=== PATIENT | female | born 1940 | race Caucasian/White ===

== ENCOUNTER 2020-03-24 16:33 | Inpatient (IN) | payer OTHER ==
[~2020-03-24] VITALS: Ht 152.4 cm; Wt 52.5 kg
[2020-03-24] MEDS ORDERED: FUROSEMIDE 40 MG/4 ML VIAL IV ONE (18:30)
[2020-03-24 18:47] LABS: Basophils # (auto) 0.1 10 ^3/uL (0-0.2); Basophils % (auto) 0.6 % (0.0-2.0); Eosinophils # (auto) 0.1 10 ^3/uL (0-0.8); Eosinophils % (auto) 0.4 % (0.0-7.0); Hematocrit 47.8 % (36.0-46.0); Hemoglobin 15.8 g/dL (12.2-16.2); Lymphocytes % (auto) 8.3 % (10.0-50.0); Mean Corpuscular Hemoglobin 29.6 pg (28.0-32.0); Mean Corpuscular Volume 89.6 fL (80.0-100.0); Monocytes # (auto) 0.6 10 ^3/uL (0-1.3); Monocytes % (auto) 5.2 % (0.0-12.0); Neutrophils # (auto) 10.2 10 ^3/uL (1.6-8.6); Neutrophils % (auto) 85.5 % (37.0-80.0); Nucleated Red Blood Cells % 0.1 %; Platelet Count (auto) 136 10^3/uL (140-450); Red Blood Cells 5.34 10^6/uL (4.0-5.20); Red Cell Distribution Width 15.1 % (11.8-14.3)
[2020-03-24 19:05] LABS: Albumin 4.1 g/dL (3.4-5.0); Anion Gap 6 (5-15); BUN/Creatinine Ratio 19.5; Blood Urea Nitrogen 16 mg/dL (7-18); Calcium 8.8 mg/dL (8.5-10.1); Carbon Dioxide 24 mmol/L (21-32); Chloride 111 mmol/L (98-107); GFR African American 86 mL/min; GFR Non-African American 71 mL/min; Glucose 131 mg/dL (74-106); Magnesium 2.3 mg/dL (1.6-2.6); Potassium 3.9 mmol/L (3.5-5.1); Sodium 141 mmol/L (136-145)
[2020-03-24 19:11] LABS: Alanine Aminotransferase 40 U/L (13-56); Alkaline Phosphatase 43 U/L (45-117); Aspartate Aminotransferase 23 U/L (15-37); Bilirubin, Total 0.4 mg/dL (0.2-1.0); Total Protein 7.3 g/dL (6.4-8.2)
[2020-03-24 20:20] LABS: Urine Bacteria NONE SEEN /hpf (None Seen); Urine Blood Negative /uL (Negative); Urine Mucus FEW (None Seen); Urine Specific Gravity 1.012 (1.001-1.035); Urine WBC 5 /hpf (0 - 5)
[2020-03-24] MEDS ORDERED: ONDANSETRON HCL 4 MG/2 ML VIAL ONE (20:20)
[2020-03-24] MEDS ORDERED: ONDANSETRON HCL 4 MG/2 ML VIAL IV ONE (20:30)
[2020-03-24] MEDS ORDERED: cefTRIAXone 1GM/50ML D5W 50 ML IV ONE (21:30)
[2020-03-24] MEDS ORDERED: NITROGLYCERIN 0.4 MG SL TAB SL PRN (21:30)
[2020-03-24] MEDS ORDERED: TEMAZEPAM 15 MG CAP PO PRN (21:30)
[2020-03-24] MEDS ORDERED: cloNIDine HCL 0.1 MG TAB PO PRN (21:30)
[2020-03-24] MEDS ORDERED: ACETAMINOPHEN 325 MG TAB PO PRN (21:30)
[2020-03-24] MEDS ORDERED: MORPHINE SULF INJ 2 MG/ML SYRINGE 1ML IV PRN (21:30)
[2020-03-24] MEDS: ONDANSETRON HCL 4 MG/2 ML VIAL IV PRN (22:37)
[2020-03-24] MEDS: FAMOTIDINE 20 MG TAB PO SCH (23:00)
[2020-03-24] MEDS: ATORVASTATIN 20 MG TAB PO SCH (23:00)
[2020-03-25] MEDS: ONDANSETRON HCL 4 MG/2 ML VIAL IV PRN (05:06)
[2020-03-25 05:58] LABS: Basophils # (auto) 0 10 ^3/uL (0-0.2); Basophils % (auto) 0.3 % (0.0-2.0); Eosinophils # (auto) 0 10 ^3/uL (0-0.8); Hematocrit 47.5 % (36.0-46.0); Hemoglobin 16.2 g/dL (12.2-16.2); Lymphocytes # (auto) 1.4 10 ^3/uL (0.4-5.4); Lymphocytes % (auto) 12.8 % (10.0-50.0); Mean Corpuscular Hemoglobin 29.6 pg (28.0-32.0); Mean Corpuscular Volume 86.9 fL (80.0-100.0); Monocytes # (auto) 0.4 10 ^3/uL (0-1.3); Monocytes % (auto) 3.3 % (0.0-12.0); Neutrophils # (auto) 9.4 10 ^3/uL (1.6-8.6); Neutrophils % (auto) 83.6 % (37.0-80.0); Nucleated Red Blood Cells % 0.1 %; Platelet Count (auto) 219 10^3/uL (140-450); Red Blood Cells 5.47 10^6/uL (4.0-5.20); Red Cell Distribution Width 14.9 % (11.8-14.3); White Blood Cell 11.2 10^3/uL (4.4-10.8)
[2020-03-25 06:22] LABS: Calcium 9.2 mg/dL (8.5-10.1); Potassium 3.5 mmol/L (3.5-5.1)
[2020-03-25 06:25] LABS: BUN/Creatinine Ratio 22.6
[2020-03-25] MEDS: cefTRIAXone 1GM/50ML D5W 50 ML IV SCH (09:00)
[2020-03-25 09:23] VITALS: BP 125/87
[2020-03-25] MEDS ORDERED: LEVO50TA7 PO (10:30)
[2020-03-25] MEDS ORDERED: ATOR10TA PO (10:30)
[2020-03-25 16:22] VITALS: BP 119/76
[2020-03-25] MEDS: ASPirin 81 mg TAB PO SCH (18:04)
[2020-03-25] MEDS: ENOXAPARIN SOD 40 MG/0.4 ML SYRINGE SC SCH (18:05)
[2020-03-25] MEDS: FUROSEMIDE 40 MG TAB PO SCH (18:05)
[2020-03-25] MEDS: FAMOTIDINE 20 MG TAB PO SCH (21:41)
[2020-03-25] MEDS: ATORVASTATIN 20 MG TAB PO SCH (21:41)
[2020-03-25 22:00] VITALS: BP 140/77
[2020-03-26 05:00] VITALS: BP 122/75
[2020-03-26 08:00] VITALS: BP 106/61
[2020-03-26] MEDS ORDERED: ADENOSINE 75 MG in GIVE UN-DILUTED 0 ML IV STA (08:17)
[2020-03-26] MEDS: ASPirin 81 mg TAB PO SCH (13:05)
[2020-03-26] MEDS: cefTRIAXone 1GM/50ML D5W 50 ML IV SCH (13:05)
[2020-03-26] MEDS: ENOXAPARIN SOD 40 MG/0.4 ML SYRINGE SC SCH (13:05)
[2020-03-26] MEDS: MECLIZINE HCL 25 MG TAB PO SCH ×2 (13:30→21:33)
[2020-03-26] MEDS: FUROSEMIDE 40 MG TAB PO SCH (13:30)
[2020-03-26 16:00] VITALS: BP 91/51
[2020-03-26 20:00] VITALS: BP 123/66
[2020-03-26] MEDS: FAMOTIDINE 20 MG TAB PO SCH (21:33)
[2020-03-26] MEDS: ATORVASTATIN 20 MG TAB PO SCH (21:33)
[2020-03-26 22:05] VITALS: BP 113/72
[2020-03-26 22:06] VITALS: BP 123/66
[2020-03-27 05:00] VITALS: BP 140/61
[2020-03-27] MEDS: MECLIZINE HCL 25 MG TAB PO SCH ×2 (05:30→14:04)
[2020-03-27 08:00] VITALS: BP 130/78
[2020-03-27] MEDS: cefTRIAXone 1GM/50ML D5W 50 ML IV SCH (09:16)
[2020-03-27] MEDS: ASPirin 81 mg TAB PO SCH (09:45)
[2020-03-27] MEDS: FUROSEMIDE 40 MG TAB PO SCH (09:45)
[2020-03-27] MEDS: ENOXAPARIN SOD 40 MG/0.4 ML SYRINGE SC SCH (09:46)
[2020-03-27 12:42] VITALS: BP 130/78
== END 2020-03-27 14:45 | disposition home or self-care (01) | DRG 292 ==
LOC: ER 16:33 → EDBD 16:33 → TELE 21:30 → TELE-WESTW 03-25 09:40
PROVIDERS: ADMIT Nurse Practitioner; ATTEND Family Medicine
DX: I50.33 Acute on chronic diastolic (congestive) heart failure (principal); G45.8 Other transient cerebral ischemic attacks and related syndromes; N39.0 Urinary tract infection, site not specified; H83.09 Labyrinthitis, unspecified ear; I70.0 Atherosclerosis of aorta; D72.829 Elevated white blood cell count, unspecified; E66.01 Morbid (severe) obesity due to excess calories; E78.5 Hyperlipidemia, unspecified; E87.6 Hypokalemia; E03.9 Hypothyroidism, unspecified; Z20.822 Contact with and (suspected) exposure to COVID-19; Z86.73 Personal history of transient ischemic attack (TIA), and cerebral infarction without residual deficits; Z90.710 Acquired absence of both cervix and uterus; Z68.22 Body mass index [BMI] 22.0-22.9, adult
CPT/HCPCS: 36415; 70450; 71045; 78452; 80048; 80053; 81001; 82962; 83735; 83880; 84484; 85025; 87086; 87426; 93005; 93017; 93306; 93886; 96365; 96375; 96376; G0378; J0153; J0696; J2405